=== PATIENT | female | born 1990 | race Caucasian/White ===

== ENCOUNTER 2020-03-05 13:57 | Emergency (ER) | payer OTHER, SELFPAY ==
[2020-03-05 13:58] VITALS: BP 153/90; PULSE 106; RESP 18; TEMP 36.2; O2SAT 94; BMI 29.9
--- NOTE | 2020-03-05 14:16 | EKG12_ITS ---
Test Reason : CP Blood Pressure : / mmHG Vent. Rate : 092 BPM Atrial Rate : 092 BPM P-R Int : 134 ms QRS Dur : 076 ms QT Int : 356 ms P-R-T Axes : 047 038 040 degrees QTc Int : 440 ms Normal sinus rhythm Septal infarct , age undetermined Abnormal ECG Confirmed by DEJON KELLY, MIKE ([id number]), primer expeditor and drier HUANG GONZALEZ ([id number]) on 03/09/2020 6:50:45 AM Referred By: CRISELDA Confirmed By:MIKE ASHFORD MD
--- NOTE | 2020-03-05 14:17 | ED.DCSUM_ITS ---
History of Present Illness Chief Complaint: Chest Pain Informant: Patient Onset: Weeks Current Severity: Moderate Maximum Severity: Moderate Narrative: Patient presents secondary to concerns for chest pain. She has had some ongoing chest tightness with radiation to her shoulders for the last several weeks. 1 month ago she was placed on reflux medication and earlier this week started on Zoloft and hydroxyzine to help with anxiety. Patient states today she has had chest tightness that radiated up to her shoulders again. She also had some tightness through her shoulder blades that is currently resolved. Patient states she was seen at urgent care yesterday with left thigh pain and tingling. They felt that her symptoms were secondary to sciatica and gave her prednisone. She does report that that is somewhat better today. - Past Medical History (1) Anxiety Status: Acute Past Medical History - Allergies and Home Meds Allergies/Adverse Reactions: Allergies No Known Allergies Allergy (Verified 03/05/20 13:58) Prior records reviewed: Yes Review of Systems General: Denies: Chills, Fever Eyes: Denies: Visual changes - bilaterally ENT: Denies: Bilateral ear pain Cardiovascular: Reports: Chest pain Respiratory: Denies: Dyspnea, Cough Gastrointestinal: Denies: Abdominal pain, Vomiting, Diarrhea Musculoskeletal: Denies: Extremity Pain Skin: Denies: Rash Neurological: Denies: Headache Psych: Reports: Anxiety Hematologic: Denies: Easy bruising, Easy bleeding Allergy: Denies: Uticaria Physical Exam Vital Signs/Narrative: Vital Signs Temp Pulse Resp BP Pulse Ox 03/05/20 13:58 97.2 F L 106 H 18 153/90 H 94 Inital Vital Signs reviewed: Yes General: Well nourished, Well developed Head: Normocephalic ENT: Moist mucous membranes Neck: Supple Cardiovascular: Tachycardia Respiratory: No distress, CTA bilaterally Abdomen: Soft, Nontender Extremities: Nontender, No edema Skin: Normal color, No rash Neurological: Alert, Oriented x3 Psychological: - - Anxious and tearful Diagnostic/Tx/Re-eval Chest X-Ray - ED: 1 View, Read by ED Physician, Normal, Heart, Lungs, Mediastinum Impressions Chest X-Ray 03/05/20 14:40 IMPRESSION: Normal x-ray examination of the chest. Electronically Signed: Ronaldo Cunningham MD at 14:52 EST Tel , Service support , 03/05/20 14:40 Chest 1 View (Portable) [RAD] Stat Laboratory Results 03/05/20 03/05/20 03/05/20 14:25 14:25 14:25 WBC 8.5 RBC 4.68 Hgb 15.4 H Hct 44.1 MCV 94.2 MCH 32.9 H MCHC 34.9 RDW Std Deviation 40.6 RDW Coeff of Radhika 11.8 Plt Count 255 MPV 9.4 Immature Gran % (Auto) 0.200 Neut % (Auto) 82.5 H Lymph % (Auto) 13.3 L [place] % (Auto) 3.8 Eos % (Auto) 0.0 Baso % (Auto) 0.2 Absolute Neuts (auto) 7.0 Absolute Lymphs (auto) 1.13 Nucleated RBC % 0 D-Dimer Quant (PE/DVT) <= 0.27 Sodium 139 Potassium 4.1 Chloride 108 H Carbon Dioxide 26.0 Anion Gap 5 BUN 11 Creatinine 0.74 Estim Creat Clear Calc 102.76 Est GFR (MDRD) Af Amer 120 Est GFR (MDRD) Non-Af 99 BUN/Creatinine Ratio 14.8 Glucose 110 H Calcium 9.2 Troponin I < 0.015 Serum , Qual 03/05/20 14:25 WBC RBC Hgb Hct MCV MCH MCHC RDW Std Deviation RDW Coeff of Radhika Plt Count MPV Immature Gran % (Auto) Neut % (Auto) Lymph % (Auto) [place] % (Auto) Eos % (Auto) Baso % (Auto) Absolute Neuts (auto) Absolute Lymphs (auto) Nucleated RBC % D-Dimer Quant (PE/DVT) Sodium Potassium Chloride Carbon Dioxide Anion Gap BUN Creatinine Estim Creat Clear Calc Est GFR (MDRD) Af Amer Est GFR (MDRD) Non-Af BUN/Creatinine Ratio Glucose Calcium Troponin I Serum , Qual NEGATIVE - EKG Initial EKG Interpretation: Sinus Rhythm - Sinus at 92 with no acute ischemia. - Medical Decision Making Patient was observed on athletic monitor throughout her ED stay. When I initially saw her heart rate was in the mid 120s. On repeat evaluation heart rate is 87. Patient is resting much more comfortably. She was given 0.5 mg of IV Ativan to help with anxiety. Blood work, EKG, chest x-ray are all unremarkable. This was discussed with her. She will be given a short course of Ativan tablets to use at home for her panic attacks and anxiety. ED Disposition - Plan for ED Patient: Disposition: Home or Assisted Living Diagnosis: Anxiety Instructions: ED Chest Pain, Noncardiac, ED Anxiety Reaction Prescriptions: Lorazepam [Ativan] 0.5 - 1 tab PO BID PRN PRN #10 tablet PRN Reason: Anxiety Transmission Status: Sent to [facility] Referrals: Houston Schaefer MD [Primary Care Provider] - 1 Week
[2020-03-05 14:33] LABS: Absolute Lymphocyte Count 1.13 X10^3/uL (0.83-4.51); Basophil# 0.02 X10^3/uL; Basophil% 0.2 % (0-1); Hematocrit 44.1 % (37-47); Hemoglobin 15.4 g/dL (12.0-15.0); Lymphocyte # 1.13 X10^3/ul (4.0); Lymphocyte % 13.3 % (19-41); Mean Corp Hgb Conc 34.9 g/dL (32-36); Mean Corpuscular Hgb 32.9 pg (27.0-32.0); Mean Corpuscular Volume 94.2 fL (81-99); Mean Platelet Vol. 9.4 fl (6.2-12.0); Monocyte# 0.32 X10^3/uL; Monocyte% 3.8 % (0-10); NRBC Flagged by Analyzer 0 % (0-5); Neutrophil # 7.01 X10^3/uL (2.7-7.7); Neutrophil % 82.5 % (47-70); Platelet Count 255 K/mm3 (150-450); RBC Distribution Width CV 11.8 % (11.6-14.6); RBC Distribution Width SD 40.6 fl (35.1-43.9); Red Blood Count 4.68 M/mm3 (4.2-5.4); White Blood Count 8.5 K/mm3 (4.4-11.0)
[2020-03-05] MEDS: LORazepam 2 MG/ML Syringe 0.5 MG IV (14:38)
--- NOTE | 2020-03-05 14:40 | RAD_ITS ---
STUDY: X-RAY CHEST REASON FOR EXAM: Female, 29 years old. chest pain. TECHNIQUE: Frontal view of the chest COMPARISON: None. FINDINGS: There is a benign 3 mm granuloma in the right lower lung. The lungs are clear and expanded. There is no demonstrated pleural abnormality. Normal size heart. Normal mediastinum and wilmar. Normal visualized pulmonary arteries. Normal visualized aortic arch and descending thoracic aorta. Normal visualized thoracic spine. Normal visualized ribs, clavicles, and shoulders. There is no demonstrated abnormality of the visualized soft tissue structures of the upper abdomen. RAD/Chest 1 View (Portable) IMPRESSION: Normal x-ray examination of the chest. Electronically Signed: Ronaldo Cunningham MD at 14:52 EST Tel , Service support ,
[2020-03-05 14:43] LABS: Internal QC Validated? YES +Cl - CLEAR BKGD; Pregnancy, Serum, hCG Quali. NEGATIVE Negative
[2020-03-05 14:52] LABS: Anion Gap 5 (5-15); BUN 11 mg/dL (7-18); BUN/Creat Ratio 14.8 RATIO (10-20); Calcium,Total 9.2 mg/dL (8.5-10.1); Chloride 108 mmol/L (98-107); Creatinine, Serum 0.74 mg/dL (0.55-1.02); EST Glomerular Filtration Rate 99 mL/min (>60); Est Glom Filt Rate - Afr Amer 120 mL/min (>60); Estimated Creatinine Clearance 102.76 ml/min; Glucose 110 mg/dL (74-106); Potassium 4.1 mmol/L (3.5-5.1); Sodium Level 139 mmol/L (136-145)
[2020-03-05 15:06] VITALS: BP 123/66; PULSE 90; RESP 20; O2SAT 98
[2020-03-05 15:38] LABS: D-Dimer Quantitative (DVT/PE) <= 0.27 FEU/ug/m (0.27-0.49)
[2020-03-05 15:55] VITALS: BP 134/77; PULSE 89; RESP 16; O2SAT 99
== END 2020-03-05 15:57 | disposition home or self-care (01) ==
PROVIDERS: Emergency Provider Emergency Medicine; PCP Family Medicine
DX: F41.9 Anxiety disorder, unspecified (principal)
CPT/HCPCS: 71045; 80048; 84484; 84703; 85025; 85379; 93005; 96374; 99285; A4216

== ENCOUNTER 2020-03-07 21:19 | Emergency (ER) | payer OTHER, SELFPAY ==
[2020-03-07 21:20] VITALS: BP 166/87; PULSE 67; RESP 18; TEMP 36.1; O2SAT 96; BMI 32.5
[2020-03-07 21:30] VITALS: PULSE 68; RESP 20; O2SAT 99
[2020-03-07] MEDS: Mag Hydrox/Al Hydrox/Simeth 30 ML UDC PO (22:03)
--- NOTE | 2020-03-07 22:06 | ED.DCSUM_ITS ---
History of Present Illness Chief Complaint: Chest Pain Informant: Patient Narrative: Patient is a 29-year-old previously healthy female who presents to the emergency department for substernal chest pain and gurgling. She feels like her acid reflux is flaring up. She does take Nexium regularly. This has not been giving significant relief. Patient was seen in the emergency department for chest pain 2 days ago and had a negative work-up including troponin, D-dimer, chest x-ray and EKG. She states that this is different and last time did not feel like her reflux. She denies any shortness of breath associated with this. No leg swelling or calf pain. She denies any cough. No fevers or chills. She currently rates her symptoms as mild. Of note she is currently on a prednisone taper day 3 for low back pain that was prescribed at urgent care on Saturday. Past Medical History - Allergies and Home Meds Allergies/Adverse Reactions: Allergies No Known Allergies Allergy (Verified 03/07/20 21:23) Primary Care Physician: Houston Shcaefer MD [Primary Care Provider] - 2 Days Prior records reviewed: Yes Past Medical History: None Smoking Status: Never smoker Review of Systems All systems negative except as indicated General: Denies: Chills, Fever, Sweats Eyes: Denies: Visual changes - bilaterally, Diplopia ENT: Denies: Rhinorrhea, Sore throat Cardiovascular: Reports: Chest pain. Denies: Palpitations Respiratory: Denies: Dyspnea, Cough, Dyspnea on exertion Gastrointestinal: Denies: Abdominal pain, Nausea, Vomiting, Diarrhea, Melena, Hematochezia Genitourinary: Denies: Dysuria, Hematuria, Frequency Musculoskeletal: Denies: Back pain, Extremity Pain Skin: Denies: Rash, Wounds Neurological: Denies: Headache, Weakness, Numbness Physical Exam Vital Signs/Narrative: Vital Signs Temp Pulse Resp BP Pulse Ox 03/07/20 21:30 68 20 H 99 03/07/20 21:20 97 F L 67 18 166/87 H 96 Inital Vital Signs reviewed: Yes General: Well nourished, Well developed, No Acute Distress Head: Normocephalic, Atraumatic Eyes: Perrl, EOMI ENT: Moist mucous membranes, No rhinorrhea Neck: Supple, Nontender Cardiovascular: Regular rate, Regular rhythm, No murmurs Respiratory: No distress, CTA bilaterally, Chest nontender Abdomen: Soft, Nontender, Nondistended, Normal bowel sounds Back: Nontender, Normal Inspection Extremities: Nontender, No edema. Negative for: Calf Tenderness Skin: Normal color, No rash Neurological: Alert, Oriented x3, Cranial nerves II-XII grossly intact, Normal Strength, Normal Sensation Psychological: Normal affect, Normal Mood Diagnostic/Tx/Re-eval - EKG Initial EKG Interpretation: - - Rate of 68 bpm and normal sinus rhythm. Normal intervals. Normal axis. No significant ST elevations or depressions. No T wave abnormalities. - Medical Decision Making Patient presents to the ED for reflux symptoms. She describes as a gurgling sensation in her chest with pain. Upon arrival to the emergency department she is satting 99% on room air. She is not tachycardic. She is in no apparent distress and has a benign physical exam. EKG was obtained which did not show any signs of ischemia or arrhythmia. With her recent work-up that was negative I do not feel this needs repeat at this time. Will trial a GI cocktail for symptomatic relief. Patient is feeling much better after the GI cocktail and does feel comfortable being discharged home. Low concern for ACS, PE, aortic pathology. We will have her follow-up with her PCP. We will have her continue her Nexium. Strict ret urn precautions were reviewed with her including any worsening chest pain or shortness of breath. She understands and is agreeable this plan. She is discharged home in stable condition. All questions were answered. ED Disposition - Plan for ED Patient: Disposition: Home or Assisted Living Diagnosis: Acid reflux, Chest pain Instructions: ED GERD (Adult) Referrals: Houston Schaefer MD [Primary Care Provider] - 2 Days
[2020-03-07 22:52] VITALS: BP 151/82; PULSE 61; RESP 18; TEMP 37.1; O2SAT 99
== END 2020-03-07 22:57 | disposition home or self-care (01) ==
PROVIDERS: Emergency Provider Emergency Medicine; PCP Family Medicine
DX: K21.9 Gastro-esophageal reflux disease without esophagitis (principal); R07.9 Chest pain, unspecified
CPT/HCPCS: 93005; 99284